=== PATIENT | male | born 1950 | race Caucasian/White ===

== ENCOUNTER → 2019-09-25 | Outpatient (CLI) | payer MEDICARE, BC ==
[~2019-09-25] MED LIST: ATOR1TAB19 PO; LISI10TA4 PO; MULT1TAB8 PO; TAMS1CAP17 PO
== END ==
LOC: M LABSMTC 10:12
PROVIDERS: ATTEND Anesthesiology
DX: Z01.818 Encounter for other preprocedural examination (principal); Z11.59 Encounter for screening for other viral diseases

== ENCOUNTER 2019-09-28 09:43 | Day surgery (SDC) | payer MEDICARE, BC ==
[~2019-09-28] VITALS: Ht 175.3 cm; Wt 83.9 kg
[~2019-09-28 09:43] MED LIST changes: +LR 1,000 ML IV ONE; +NS 1,000 ML IV ONE
[2019-09-28] MEDS ORDERED: propofoL 200 MG/20 ML VIAL As Ordered ONE ×3 (11:15→11:28)
--- NOTE | 2019-09-28 11:47 | ROOR ---
Patient Name: Gareth Garcia Procedure Date: 09/28/2019 10:58 AM Date of : 1950 Age: 68 Room: [facility] Gender: Male Note Status: Finalized Procedure: Colonoscopy Indications: Positive Cologuard test Providers: Derek Oshea MD Referring MD: Marcelina Solomon MD Requesting Provider: Medicines: Monitored Anesthesia Care Complications: No immediate complications. Procedure: Pre-Anesthesia Assessment: - Prior to the procedure, a History and Physical was performed, and patient medications and allergies were reviewed. The patient is competent. The risks and benefits of the procedure and the sedation options and risks were discussed with the patient. All questions were answered and informed consent was obtained. Patient identification and proposed procedure were verified by the physician, the nurse and the anesthesiologist in the procedure room. Mental Status Examination: alert and oriented. Airway Examination: normal oropharyngeal airway and neck mobility. Respiratory Examination: clear to auscultation. CV Examination: normal. Prophylactic Antibiotics: The patient does not require prophylactic antibiotics. Prior Anticoagulants: The patient has taken no previous anticoagulant or antiplatelet agents. ASA Grade Assessment: II - A patient with mild systemic disease. After reviewing the risks and benefits, the patient was deemed in satisfactory condition to undergo the procedure. The anesthesia plan was to use monitored anesthesia care (MAC). Immediately prior to administration of medications, the patient was re-assessed for adequacy to receive sedatives. The heart rate, respiratory rate, oxygen saturations, blood pressure, adequacy of pulmonary ventilation, and response to care were monitored throughout the procedure. The physical status of the patient was re-assessed after the procedure. The Colonoscope was introduced through the anus and advanced to the terminal ileum, with identification of the appendiceal orifice and IC valve. The colonoscopy was performed without difficulty. The patient tolerated the procedure well. The quality of the bowel preparation was good. The ileocecal valve, appendiceal orifice, and rectum were photographed. Scope insertion time was 2 minutes. Scope withdrawal time was 10 minutes. The total duration of the procedure was 14 minutes. Findings: The perianal and digital rectal examinations were normal. The terminal ileum appeared normal. Five flat and sessile polyps were found in the recto-sigmoid colon, ascending colon and cecum. The polyps were 5 to 15 mm in size. These polyps were removed with a hot snare. Resection and retrieval were complete. To close a defect after polypectomy, two hemostatic clips were successfully placed. Clips placed on cecal polypectomy site. Verification of patient identification for the specimen was done by the physician and nurse using the patient's name, date and medical record number. Estimated blood loss was minimal. Multiple small and large-mouthed diverticula were found from sigmoid to ascending colon. There was no evidence of diverticular bleeding. Non-bleeding external and internal hemorrhoids were found during retroflexion. The hemorrhoids were medium-sized. Impression: - The examined portion of the ileum was normal. - Five 5 to 15 mm polyps at the recto-sigmoid colon, in the ascending colon and in the cecum, removed with a hot snare. Resected and retrieved. Clips were placed. - Moderate diverticulosis from sigmoid to ascending colon. There was no evidence of diverticular bleeding. - Non-bleeding external and internal hemorrhoids. Recommendation: - Patient has a contact number available for emergencies. The signs and symptoms of potential delayed complications were discussed with the patient. Return to normal activities tomorrow. Written discharge instructions were provided to the patient. - High fiber diet. - Continue present medications. - Await pathology results. - Repeat colonoscopy in 3 - 5 years for surveillance based on pathology results. - Telephone GI clinic for pathology results in 2 weeks. - Return to primary care physician. Derek Oshea MD Derek Oshea MD 09/28/2019 11:47:18 AM Electronically signed by Derek Oshea MD Number of Addenda: 0 Note Initiated On: 09/28/2019 10:58 AM Estimated Blood Loss: Estimated blood loss was minimal.
[2019-09-28 12:10] VITALS: BP 120/77
== END 2019-09-28 12:12 | disposition home or self-care (01) ==
LOC: M OPP 09:43
PROVIDERS: ATTEND Internal Medicine Gastroenterology
DX: K63.5 Polyp of colon (principal); K64.8 Other hemorrhoids; K57.30 Diverticulosis of large intestine without perforation or abscess without bleeding; R19.5 Other fecal abnormalities; I10 Essential (primary) hypertension; Z79.899 Other long term (current) drug therapy; Z88.0 Allergy status to penicillin

== ENCOUNTER 2022-09-21 07:54 | Day surgery (SDC) | payer MEDICARE, BC ==
[~2022-09-21] VITALS: Ht 175.3 cm; Wt 82.6 kg
[~2022-09-21 07:54] MED LIST changes: +LISI10TA22 PO; -LISI10TA4 PO; -LR 1,000 ML IV ONE
[2022-09-21] MEDS ORDERED: propofoL 200 MG/20 ML VIAL As Ordered ONE (09:59)
[2022-09-21] MEDS ORDERED: LIDOCAINE 2% 100MG/5ML SDV (FOR ANES.) As Ordered ONE (09:59)
[2022-09-21 10:28] VITALS: BP 123/62
== END 2022-09-21 10:35 | disposition home or self-care (01) ==
LOC: M OPP 07:54
PROVIDERS: ATTEND Internal Medicine Gastroenterology
DX: Z12.11 Encounter for screening for malignant neoplasm of colon (principal); Z86.010 Personal history of colon polyps; Z80.0 Family history of malignant neoplasm of digestive organs; D12.6 Benign neoplasm of colon, unspecified; K64.4 Residual hemorrhoidal skin tags; K64.8 Other hemorrhoids; K57.30 Diverticulosis of large intestine without perforation or abscess without bleeding; Z79.02 Long term (current) use of antithrombotics/antiplatelets; Z79.899 Other long term (current) drug therapy; Z88.1 Allergy status to other antibiotic agents

== ENCOUNTER → 2022-09-27 | Outpatient (CLI) | payer MEDICARE, BC ==
[~2022-09-27] MED LIST changes: +ISOVUE-300 61% 100ML VIAL As Ordered ONE; +LIDOCAINE 1% MDV 20ML VIAL As Ordered ONE; -NS 1,000 ML IV ONE; +methylPREDNISolone SUSP 40MG/ML 1ML VIAL (DEPO MEDROL) As Ordered ONE
== END ==
LOC: M RAD 13:47
PROVIDERS: ATTEND Physician Assistant
DX: M19.011 Primary osteoarthritis, right shoulder (principal)
CPT/HCPCS: 20610; 77002; J1030; Q9967

== ENCOUNTER → 2023-05-17 | Outpatient (CLI) | payer MEDICARE, BC | LOC: M RAD 13:41 | PROVIDERS: ATTEND Physician Assistant | DX: M19.011 Primary osteoarthritis, right shoulder (principal) | CPT/HCPCS: 20610; 77002; J1030; Q9967 ==

== ENCOUNTER → 2023-10-14 | Outpatient (CLI) | payer MEDICARE, BC ==
[~2023-10-14] MED LIST changes: -ISOVUE-300 61% 100ML VIAL As Ordered ONE
== END ==
LOC: M IRPRO 12:37
PROVIDERS: ATTEND Physician Assistant
DX: M19.011 Primary osteoarthritis, right shoulder (principal)
CPT/HCPCS: 20611; J1010

== ENCOUNTER 2024-01-26 07:07 | Day surgery (SDC) | payer MEDICARE, BC ==
[~2024-01-26] VITALS: Ht 175.3 cm; Wt 77.0 kg
[~2024-01-26 07:07] MED LIST changes: -LIDOCAINE 1% MDV 20ML VIAL As Ordered ONE; -methylPREDNISolone SUSP 40MG/ML 1ML VIAL (DEPO MEDROL) As Ordered ONE
[2024-01-26] MEDS: NS 1,000 ML IV ONE (07:19)
[2024-01-26] MEDS ORDERED: propofoL 200 MG/20 ML VIAL As Ordered ONE (08:05)
[2024-01-26 08:27] VITALS: TEMP 97.4
[2024-01-26 08:52] VITALS: BP 115/74; O2SAT 94
== END 2024-01-26 08:57 | disposition home or self-care (01) ==
LOC: M OPP 07:07
PROVIDERS: ATTEND Internal Medicine Gastroenterology
DX: K57.30 Diverticulosis of large intestine without perforation or abscess without bleeding (principal); D12.2 Benign neoplasm of ascending colon; D12.3 Benign neoplasm of transverse colon; K64.8 Other hemorrhoids; Z86.010 Personal history of colon polyps; I10 Essential (primary) hypertension; E78.5 Hyperlipidemia, unspecified; R12 Heartburn; G47.33 Obstructive sleep apnea (adult) (pediatric); Z91.09 Other allergy status, other than to drugs and biological substances; Z88.1 Allergy status to other antibiotic agents; Z79.899 Other long term (current) drug therapy

== ENCOUNTER → 2024-02-20 | Outpatient (CLI) | payer MEDICARE, BC ==
[~2024-02-20] MED LIST changes: +LIDOCAINE 1% MDV 20ML VIAL As Ordered ONE; +methylPREDNISolone SUSP 40MG/ML 1ML VIAL (DEPO MEDROL) As Ordered ONE
== END ==
LOC: M IRPRO 13:59
PROVIDERS: ATTEND Physician Assistant
DX: M19.011 Primary osteoarthritis, right shoulder (principal)
CPT/HCPCS: 20611; J1010

== ENCOUNTER → 2024-06-19 | Outpatient (CLI) | payer MEDICARE, BC ==
[~2024-06-19] MED LIST changes: +ISOVUE-300 61% 100ML VIAL As Ordered ONE
== END ==
LOC: M RAD 05-28 14:22 → M IRPRO 15:09
PROVIDERS: ATTEND Physician Assistant
DX: M19.011 Primary osteoarthritis, right shoulder (principal)
CPT/HCPCS: 20610; 77002; J1010; Q9967